=== PATIENT | female | born 1990 | race Two or more races ===

== ENCOUNTER 2018-05-09 10:57 | Emergency (ER) | payer OTHER ==
[2018-05-09 11:12] VITALS: TEMP 99.1; BMI 28.3
--- NOTE | 2018-05-09 11:44 | PDOC ---
*Physical Exam - Vital Signs Last Vital Signs Temp Pulse Resp BP Pulse Ox 99.1 F 97 H 18 126/79 100 05/09/18 11:10 05/09/18 11:10 05/09/18 11:10 05/09/18 11:10 05/09/18 11:10 - Physical Exam Comments: 05/09/18 11:43 The patient was examined by [SHE Awad] under my direct supervision. I personally evaluated the patient. I concur with the above findings and the plan of care. ED Treatment Course - LABORATORY CBC & Chemistry Diagram: 05/09/18 11:21 05/09/18 11:21 *DC/Admit/Observation/Transfer Diagnosis at time of Disposition: Missed - Discharge Dispostion Disposition: HOME Condition at time of disposition: Stable - Referrals Referrals: Brodie Wilson [Other] - Call tomorrow Brandie Sunshine [Primary Care Provider] - - Patient Instructions Printed Discharge Instructions: Therapeutic : Surgical Additional Instructions: Take motrin as needed for pain. Follow-up tomorrow as instructed in [facility]: [address] [place] [address]. [address], .. [id number] tomorrow at 10am - Post Discharge Activity
--- NOTE | 2018-05-09 11:46 | PDOC ---
History of Present Illness - General Chief Complaint: Pain Stated Complaint: PAIN (8 WKS ) Time Seen by Provider: 05/09/18 11:15 History Source: Patient Exam Limitations: Clinical Condition - History of Present Illness Initial Comments: 05/09/18 11:41 Patient with no significant past medication history present with complaint of worsening cramping lower abdominal pain with nausea and vomiting. Patient reports she was seen by her PRODUCT SUPPORT ANALYST 5 days ago and was told she was 8 weeks but has no heart rate. Patient reported her PRODUCT SUPPORT ANALYST told her she' ll be scheduled for D&C sometime next week but has been having persistent crampy pain. Patient denies vaginal bleeding, fever. Timing/Duration: 1 week Past History - Past Medical History Allergies/Adverse Reactions: Allergies Allergy/AdvReac Type Severity Reaction Status Date / Time No Known Allergies Allergy Verified 05/09/18 11:12 Home Medications: Ambulatory Orders NK [No Known Home Medication] 05/09/18 Asthma: No Cancer: No Cardiac Disorders: No COPD: No Diabetes: No HTN: No Seizures: No Thyroid Disease: No - Suicide/Smoking/Psychosocial Hx Smoking History: Never smoked Have you smoked in the past 12 months: No Information on smoking cessation initiated: No Hx Alcohol Use: No Drug/Substance Use Hx: No Hx Substance Use Treatment: No Review of Systems - Review of Systems Able to Perform ROS?: Yes Is the patient limited Italian proficient: No Constitutional: No: Fever HEENTM: No: Symptoms Reported Respiratory: No: Symptoms reported Cardiac (ROS): No: Symptoms Reported ABD/GI: Yes: Nausea, Vomiting, Abdominal cramping (lower abdomen) : Yes: See HPI, Pain (b/l pelvic pain). No: Burning, Dysuria, Hematuria, Other (no vaginal bleeding) Neurological: No: Dizziness All Other Systems: Reviewed and Negative *Physical Exam - Vital Signs Last Vital Signs Temp Pulse Resp BP Pulse Ox 99.1 F 97 H 18 126/79 100 05/09/18 11:10 05/09/18 11:10 05/09/18 11:10 05/09/18 11:10 05/09/18 11:10 - Physical Exam General Appearance: Yes: Nourished, Appropriately Dressed. No: Apparent Distress HEENT: positive: Normal ENT Inspection Neck: positive: Supple Respiratory/Chest: positive: Lungs Clear. negative: Respiratory Distress, Accessory Muscle Use Cardiovascular: positive: Regular Rhythm, Regular Rate Female Pelvic Exam: positive: normal external exam, cervical os closed, discharge (mild clear physiological discharge). negative: CMT, lesions, adnexal tenderness, vaginal bleeding Gastrointestinal/Abdominal: positive: Tender (mild suprapubic tenderness), Flat , Soft. negative: Organomegaly, Increased Bowel Sounds, Distended, Guarding, Rebound Musculoskeletal: negative: CVA Tenderness Extremity: positive: Normal Inspection Neurologic: positive: Fully Oriented, Normal Response, Motor Strength 5/5 Moderate Sedation - Procedure Monitoring Vital Signs: Procedure Monitoring Vital Signs Temperature 99.1 F 05/09/18 11:10 Pulse Rate 97 H 05/09/18 11:10 Respiratory Rate 18 05/09/18 11:10 Blood Pressure 126/79 05/09/18 11:10 O2 Sat by Pulse Oximetry (%) 100 05/09/18 11:10 ED Treatment Course - LABORATORY CBC & Chemistry Diagram: 05/09/18 11:21 05/09/18 11:21 - RADIOLOGY Radiology Studies Ordered: Category Date Time Status TRANSVAGINAL US PREG [US] Stat Ultrasound 05/09/18 11:32 Ordered Medical Decision Making - Medical Decision Making 05/09/18 11:48 Patient with no significant past medication present with complaint of cramping lower abdominal pain and nausea or vomiting which has been worse in the for week now. Patient is saw PRODUCT SUPPORT ANALYST and was told she is 8 weeks by have no heart rate. Patient was diagnosed with missed AB and being scheduled for D &C but does not have any appointment scheduled yet for D&C. No vaginal bleeding or clinical exam. No cervical motion tenderness on exam. Patient afebrile. CBC, CMP, type and screen, UA and urine culture ordered. Pelvic ultrasound ordered. Patient PRODUCT SUPPORT ANALYST will be contacted after lab and ultrasound to discuss follow-up care. 05/09/18 12:55 Patient CBC and chemistry labs unremarkable. beta hcg [id number]. transvaginal u/s pending 05/09/18 14:39 Ultrasound showed 8 week with no heart rate and left adnexal mass which could be from corpus luteum cyst. Case discussed with patient PRODUCT SUPPORT ANALYST doctor Hipple and reviewed ultrasound results and agrees with plan to have patient referred to another clinic for D&C due to scheduling conflicts. Plan discussed with patient and patient agrees with plan. Patient agrees to follow up with [facility] for D&C. Appointment made for patient for tomorrow morning at 10 AM. Patient is stable for discharge. *DC/Admit/Observation/Transfer Diagnosis at time of Disposition: Missed - Discharge Dispostion Disposition: HOME Condition at time of disposition: Stable Decision to Admit order: No - Referrals Referrals: Brandie Sunshine [Primary Care Provider] - Brodie Wilson [Other] - Call tomorrow - Patient Instructions Printed Discharge Instructions: Therapeutic : Surgical Additional Instructions: Take motrin as needed for pain. Follow-up tomorrow as instructed in [facility]: [address] [place] [address]. [address] [address] tomorrow at 10am - Post Discharge Activity
[2018-05-09 11:52] LABS: URINE APPEARANCE CLEAR; URINE BILIRUBIN NEGATIVE (<2.0 mg/dL); URINE COLOR YELLOW; URINE GLUCOSE (UA) NEGATIVE (NEGATIVE); URINE KETONE 1+ (NEGATIVE); URINE LEUK ESTERASE NEGATIVE (NEGATIVE); URINE NITRITE NEGATIVE (NEGATIVE); URINE PROTEIN NEGATIVE (NEGATIVE); URINE UROBILINOGEN NEGATIVE mg/dL (0.2-1.0)
[2018-05-09 12:00] LABS: BASO % 0.3 % (0-2.0); EOS % 2.3 % (0-4.5); HEMOGLOBIN 14.8 GM/dL (10.7-15.3); LYMPH % 28.6 % (8-40); MCH 31.7 pg (25.7-33.7); MCHC 35.3 g/dl (32.0-36.0); MEAN CELL VOLUME 89.8 fl (80-96); MEAN PLT VOLUME 8.5 fl (7.5-11.1); MONO % 4.6 % (3.8-10.2); NEUT % 64.2 % (42.8-82.8); PLATELET COUNT 253 K/MM3 (134-434); RBC 4.67 M/mm3 (3.60-5.2); RDW 13.5 % (11.6-15.6); WHITE BLOOD COUNT 6.6 K/mm3 (4.0-10.0)
[2018-05-09 12:42] LABS: ALK PHOS 78 U/L (45-117); ANION GAP 7 MMOL/L (8-16); BILIRUBIN,TOTAL 0.4 mg/dL (0.2-1); BLOOD UREA NITROGEN 6 mg/dL (7-18); CALCIUM 8.9 mg/dL (8.5-10.1); CHLORIDE 107 mmol/L (98-107); CO2 23 mmol/L (21-32); CREATININE 0.6 mg/dL (0.55-1.3); GLUCOSE,RANDOM 101 mg/dL (74-106); POTASSIUM 3.7 mmol/L (3.5-5.1); SGOT/AST 15 U/L (15-37); SGPT/ALT 20 U/L (13-61); SODIUM 137 mmol/L (136-145); TOT PROT 7.5 g/dl (6.4-8.2)
[2018-05-09 12:44] LABS: INR 1.01 (0.83-1.09); PROTHROMBIN TIME (PATIENT) 11.9 SEC (9.7-13.0)
[2018-05-09 12:46] LABS: ACTIVATED PTT 29.4 SECONDS (25.2-36.5)
[2018-05-09 15:06] VITALS: BP 124/63; PULSE 90
== END 2018-05-09 15:06 | disposition home or self-care (01) ==
LOC: JER 10:57
DX: O02.1 Missed abortion (principal)
CPT/HCPCS: 36415; 76817-TC; 80053; 81003; 84702; 85025; 85610; 85730; 86850; 86900; 86901; 87086; 87491; 87591; 99283-25

== ENCOUNTER → 2020-10-13 | Day surgery (SDC) | payer OTHER ==
[2020-10-13 10:22] LABS: BLOOD UREA NITROGEN 10.6 mg/dL (7-18)
[2020-10-13 10:26] LABS: CREATININE 0.7 mg/dL (0.55-1.3)
== END | disposition home or self-care (01) ==
LOC: JRADUS-SUR 09:14
PROVIDERS: ATTEND Physician Assistant Surgical
PROC: BU18YZZ Fluoroscopy of Uterus and Fallopian Tubes using Other Contrast (ICD-10-PCS; principal; 2020-10-13)
DX: N97.9 Female infertility, unspecified (principal)
CPT/HCPCS: 36415; 58340; 74740-TC-FY; 76000-TC-FY; 82565; 84520; 84702; 84703